=== PATIENT | female | born 1980 | race Caucasian/White ===

== ENCOUNTER 2024-06-04 15:37 | Emergency (ER) | payer OTHER ==
[2024-06-04] MEDS ORDERED: NA CHLORIDE 0.9% 500 ML ONE (17:14)
[2024-06-04 17:47] LABS: Absolute Basophils 0.1 K/uL (0-0.5); Absolute Eosinophils 0.3 K/uL (0-0.5); Absolute Lymphocytes (CBC) 2.6 K/uL (0.7-4.9); Absolute Monocytes 0.8 K/uL (0.1-1.3); Absolute Neutrophil 9.1 K/uL (1.8-8.0); Basophils % 1.2 % (0-1.3); Eosinophils % 2.1 % (0-4.4); Hematocrit 39.7 % (36.0-45.0); Hemoglobin 12.7 g/dL (12.0-15.0); Lymphocytes % 20.2 % (15.3-44.8); MCH 26.2 pg (27.0-35.0); MCHC 31.9 g/dL (32.0-36.0); MCV 82.2 fL (80-100); MPV 9.7 fL (7.6-11.3); Neutrophils % 70.5 % (41.7-73.7); Nucleated Red Blood Cells % 0.1 % (0-0); Platelets 323 thou/uL (152-406); RBC Red Blood Cell Count 4.83 M/uL (3.86-4.86); Red Cell Distribution Width 14.6 % (12.1-15.2)
--- NOTE | 2024-06-04 18:01 | EDPHYS ---
Physician Documentation [facility] Name: Norma Macias Age: 44 yrs Sex: Female : 1980 Arrival Date: 06/04/2024 Time: 15:37 Bed 17 Private MD: ED Physician Konstantin Lacy HPI: 06/04 17:54 This 44 yrs old Female presents to ER via Ambulatory with complaints of chelsea Abscess. 17:54 The patient presents with cellulitis of the left labia majora, the patient presents chelsea with a swollen area of the . Description: draining, erythematous, fluctuant, swollen. Onset: The symptoms/episode began/occurred 5 day(s) ago. Possible cause(s): unknown. Associated signs and symptoms: The patient has no apparent associated signs or symptoms. Modifying factors: the symptoms are alleviated by remaining still, sitz bath, the symptoms are aggravated by movement, walking, pressure, squeezing the lesion and expressing the contents, touching. Severity of symptoms: At their worst the symptoms were moderate, in the emergency department the symptoms are unchanged. The patient has not experienced similar symptoms in the past. Historical: - Allergies: 16:17 No Known Allergies; cm10 - PMHx: 16:17 Anxiety; cm10 - PSHx: 16:17 section; cm10 - Immunization history:: Adult Immunizations up to date. - Infectious Disease History:: Denies. - Social history:: Smoking status: Patient reports the use of cigarette tobacco products, smokes one-half pack cigarettes per day. - Family history:: not pertinent. ROS: 17:54 Constitutional: Negative for fever, chills, and weight loss, Eyes: Negative for injury, chelsea pain, redness, and discharge, ENT: Negative for injury, pain, and discharge, Neck: Negative for injury, pain, and swelling, Cardiovascular: Negative for chest pain, palpitations, and edema, Respiratory: Negative for shortness of breath, cough, wheezing, and pleuritic chest pain, Abdomen/GI: Negative for abdominal pain, nausea, vomiting, diarrhea, and constipation, Back: Negative for injury and pain, MS/Extremity: Negative for injury and deformity, Neuro: Negative for headache, weakness, numbness, tingling, and seizure, Psych: Negative for depression, anxiety, suicide ideation, homicidal ideation, and hallucinations, Allergy/Immunology: Negative for hives, rash, and allergies, Endocrine: Negative for neck swelling, polydipsia, polyuria, polyphagia, and marked weight changes, Hematologic/Lymphatic: Negative for swollen nodes, abnormal bleeding, and unusual bruising, 17:54 : Positive for of the left labia majora, Exam: 17:54 Constitutional: This is a well developed, well nourished patient who is awake, alert, chelsea and in no acute distress. Head/Face: Normocephalic, atraumatic. Eyes: Pupils equal round and reactive to light, extra-ocular motions intact. Lids and lashes normal. Conjunctiva and sclera are non-icteric and not injected. Cornea within normal limits. Periorbital areas with no swelling, redness, or edema. ENT: Nares patent. No nasal discharge, no septal abnormalities noted. Tympanic membranes are normal and external auditory canals are clear. Oropharynx with no redness, swelling, or masses, exudates, or evidence of obstruction, uvula midline. Mucous membranes moist. Neck: Trachea midline, no thyromegaly or masses palpated, and no cervical lymphadenopathy. Supple, full range of motion without nuchal rigidity, or vertebral point tenderness. No Meningismus. Chest/axilla: Normal chest wall appearance and motion. Nontender with no deformity. No lesions are appreciated. Cardiovascular: Regular rate and rhythm with a normal S1 and S2. No gallops, murmurs, or rubs. Normal PMI, no JVD. No pulse deficits. Respiratory: Lungs have equal breath sounds bilaterally, clear to auscultation and percussion. No rales, rhonchi or wheezes noted. No increased work of breathing, no retractions or nasal flaring. Abdomen/GI: Soft, non-tender, with normal bowel sounds. No distension or tympany. No guarding or rebound. No evidence of tenderness throughout. Back: No spinal tenderness. No costovertebral tenderness. Full range of motion. MS/ Extremity: Pulses equal, no cyanosis. Neurovascular intact. Full, normal range of motion., bilateral aka Neuro: Awake and alert, GCS 15, oriented to person, place, time, and situation. Cranial nerves II-XII grossly intact. Motor strength 5/5 in all extremities. Sensory grossly intact. Cerebellar exam normal. Normal gait. Psych: Awake, alert, with orientation to person, place and time. Behavior, mood, and affect are within normal limits. 17:54 : CVA tenderness, is absent, Pelvic Exam: External exam: LEFT LABIA, RED, TENDER , NO BARTHOLINS, Vital Signs: 16:16 BP 133 / 95; Pulse 71; Resp 15; Temp 98.5(O); Pulse Ox 100% on R/A; Weight 77.11 kg; cm10 Height 5 ft. 4 in. ; Pain 8/10; 18:00 BP 128 / 87; Pulse 72; Resp 18; Temp 97.5; Pulse Ox 99% on R/A; ph 16:16 Body Mass Index 29.18 (77.11 kg, 162.56 cm) cm10 16:16 Pain Scale: Adult cm10 MDM: 16:15 Medical Screening Exam initiated chelsea 17:57 Differential diagnosis: abscess, cellulitis. Data reviewed: vital signs, nurses notes, [facility] lab test result(s). Consideration of Admission/Observation Escalation of care including admission/observation considered. I considered the following discharge prescriptions or medication management in the emergency department Medications were administered in the Emergency Department. See MAR. Test considered but Not performed: Ultrasound NO USG. Historians other than the Patient: PT WELL INFORMED. Care significantly affected by the following chronic conditions: ANXIETY. Counseling: I had a detailed discussion with the patient and/or guardian regarding the historical points, exam findings, and any diagnostic results supporting the discharge/admit diagnosis, lab results, the need for outpatient follow up, for definitive care, a family practitioner, an OB/Gyne specialist. 06/04 16:51 Order name: CBC with Diff; Complete Time: 17:53 chelsea Administered Medications: 17:36 Not Given (Duplicate Order): prochlorperazinesuppository [address] once chelsea 18:29 Drug: Doxycycline PO 200 mg PO once Route: PO; ph 18:29 Follow up: Response: No adverse reaction; Medication administered at discharge. ph 18:29 Drug: Trimethoprim-Sulfamethoxazole PO (160 mg-800 mg (DS) 1 tablet PO once Route: PO; ph 18:30 Follow up: Response: No adverse reaction; Medication administered at discharge. ph 18:29 Drug: Ibuprofen PO 600 mg PO once Route: PO; ph 18:30 Follow up: Response: No adverse reaction; Medication administered at discharge. ph 18:30 Not Given (Other Intervention Used): ns 0.9% 500 ml IV at bolus once; to be given as a ph bolus over 30 minutes Disposition Summary: 06/04/24 18:00 Discharge Ordered Notes: Location: Home che[place]sea Problem: new chelsea Symptoms: have improved chelsea Condition: Stable chelsea Diagnosis - Cutaneous abscess of perineum - LEFT LABIA chelsea - Cellulitis of other sites chelsea Followup: chelsea - With: Private Physician - When: 2 - 3 days - Reason: Recheck today's complaints, Continuance of care, Re-evaluation by your physician Followup: chelsea - With: Romina Altamirano MD - When: 2 - 3 days - Reason: Recheck today's complaints, Re-evaluation by your physician Discharge Instructions: - Discharge Summary Sheet chelsea - Skin Abscess chelsea - Cellulitis, Adult chelsea - How to Take a Sitz Bath chelsea - Skin Abscess, [id number] chelsea - Cellulitis, Adult, [id number] [facility] Forms: - Medication Reconciliation Form [facility] - Antibiotic Education [facility] - Prescription Opioid Use [facility] - Patient Portal Instructions [facility] - Leadership Thank You Letter [facility] - Work release form ph Prescriptions: - diclofenac sodium 50 mg Oral tablet, delayed release (enteric coated) - take 1 tablet ORAL route 3 times per day; 21 tablet; Refills: 0, Product [facility] Selection Permitted - Centany 2 % Topical ointment - apply 1 application TOPICAL route 3 times per day; 15 gram; Refills: 0, Product [place]sea Selection Permitted - Doxycycline Hyclate 100 mg Oral tablet - take 1 tablet ORAL route every 12 hours; 20 tablet; Refills: 0, Product [facility] Selection Permitted - Fluconazole 200 mg Oral tablet - take 1 tablet ORAL route once TAKE ONE NEEDED, REPEAT IN 1 WEEK IF SYMPTOMS chelsea PERSIST; 2 tablet; Refills: 0, Product Selection Permitted - Bactrim DS 800-160 mg Oral Tablet - take 1 tablet ORAL route every 12 hours for 7 days; 14 tablet; Refills: 0, [facility] Product Selection Permitted Signatures: Dispatcher [employer] Konstantin Vega MD MD cha Hall, Patricia RN RN ph Kaykay Esposito Clarissa RN RN cm10 Corrections: (The following items were deleted from the chart) 17:36 17:36 COMPREHENSIVE METABOLIC PANEL+C.LAB.BRZ ordered. EDMS EDMS 18: 17:37 COMPREHENSIVE METABOLIC PANEL+C.LAB.BRZ ordered. EDMS EDMS 18:29 18:05 Labs - recollect needed ordered. eb ph
--- NOTE | 2024-06-04 18:01 | ER ---
Nurse's Notes [facility] Name: Norma Macias Age: 44 yrs Sex: Female : 1980 Arrival Date: 06/04/2024 Time: 15:37 Bed 17 Private MD: Diagnosis: Cutaneous abscess of perineum-LEFT LABIA;Cellulitis of other sites Presentation: 06/04 16:16 Chief complaint: Patient states: Abscess to left labia X3 days. Pt reports that today cm10 it started draining. Coronavirus screen: Client denies travel out of the [place] in the last 14 days. Ebola Screen: Patient denies travel to an Ebola-affected area in the 21 days before illness onset. No symptoms or risks identified at this time. Initial Sepsis Screen: Does the patient meet any 2 criteria? No. Patient's initial sepsis screen is negative. Does the patient have a suspected source of infection? No. Patient's initial sepsis screen is negative. Risk Assessment: Do you want to hurt yourself or someone else? Patient reports no desire to harm self or others. Onset of symptoms was June 01, 2024. 16:16 Method Of Arrival: Ambulatory cm10 16:16 Acuity: KEM 4 cm10 Triage Assessment: 16:17 General: Appears in no apparent distress. comfortable, Behavior is calm, cooperative, cm10 appropriate for age. Pain: Complains of pain in left labia majora Pain currently is 8 out of 10 on a pain scale. Neuro: No deficits noted. Level of Consciousness is awake, alert, obeys commands, Oriented to person, place, time, situation, Appropriate for age. Respiratory: No deficits noted. Airway is patent Respiratory effort is even, unlabored, Respiratory pattern is regular, symmetrical. Derm: Abscess located on left labia minora. Historical: - Allergies: 16:17 No Known Allergies; cm10 - PMHx: 16:17 Anxiety; cm10 - PSHx: 16:17 section; cm10 - Immunization history:: Adult Immunizations up to date. - Infectious Disease History:: Denies. - Social history:: Smoking status: Patient reports the use of cigarette tobacco products, smokes one-half pack cigarettes per day. - Family history:: not pertinent. Screenin:58 [facility] ED Fall Risk Assessment (Adult) History of falling in the last 3 months, ph including since admission No falls in past 3 months (0 pts) Confusion or Disorientation No (0 pts) Intoxicated or Sedated No (0 pts) Impaired Gait No (0 pts) Mobility Assist Device Used No (0 pt) Altered Elimination No (0 pt) Score/Fall Risk Level 0 - 2 = Low Risk Oriented to surroundings, Maintained a safe environment, Hourly rounding (assess needs \T\ fall precautionary measures) done. Abuse screen: Denies threats or abuse. Denies injuries from another. Nutritional screening: No deficits noted. Tuberculosis screening: No symptoms or risk factors identified. Assessment: 17:57 General: Appears in no apparent distress. comfortable, well groomed, Behavior is calm, ph cooperative, appropriate for age. Pain: Complains of pain in left labia minora. Neuro: Level of Consciousness is awake, alert, obeys commands, Oriented to person, place, time, situation. Cardiovascular: Capillary refill < 3 seconds in bilateral fingers Patient's skin is warm and dry. Respiratory: Airway is patent Respiratory effort is even, unlabored. Derm: Skin is pink, warm \T\ dry. Derm: Abscess located on left labia minora has purulent drainage. Vital Signs: 16:16 BP 133 / 95; Pulse 71; Resp 15; Temp 98.5(O); Pulse Ox 100% on R/A; Weight 77.11 kg; cm10 Height 5 ft. 4 in. ; Pain 8/10; 18:00 BP 128 / 87; Pulse 72; Resp 18; Temp 97.5; Pulse Ox 99% on R/A; ph 16:16 Body Mass Index 29.18 (77.11 kg, 162.56 cm) cm10 16:16 Pain Scale: Adult cm10 ED Course: 15:41 Patient arrived in ED. sj2 16:15 Konstantin Lacy MD is Attending Physician. chelsea 16:17 Triage completed. cm10 16:17 Arm band placed on right wrist. Patient placed in waiting room. cm10 16:46 Eveline Sanders, RN is Primary Nurse. ph 17:00 Initial lab(s) drawn, by ED staff, sent to lab. Inserted saline lock: 20 gauge in right ph antecubital area, using aseptic technique. Blood collected. Flushed with 10 mL NS. 17:58 Romina Altamirano MD is Referral Physician. [facility] 17:59 Patient has correct armband on for positive identification. Bed in low position. Call ph light in reach. Side rails up X 1. Pulse ox on. NIBP on. 17:59 No provider procedures requiring assistance completed. ph 18:30 IV discontinued, intact, bleeding controlled, No redness/swelling at site. Pressure ph dressing applied. Administered Medications: 17:36 Not Given (Duplicate Order): prochlorperazinesuppository 25 mg HI once chelsea 18:29 Drug: Doxycycline PO 200 mg PO once Route: PO; ph 18:29 Follow up: Response: No adverse reaction; Medication administered at discharge. ph 18:29 Drug: Trimethoprim-Sulfamethoxazole PO (160 mg-800 mg (DS) 1 tablet PO once Route: PO; ph 18:30 Follow up: Response: No adverse reaction; Medication administered at discharge. ph 18:29 Drug: Ibuprofen PO 600 mg PO once Route: PO; ph 18:30 Follow up: Response: No adverse reaction; Medication administered at discharge. ph 18:30 Not Given (Other Intervention Used): ns 0.9% 500 ml IV at bolus once; to be given as a ph bolus over 30 minutes Medication: 17:59 VIS not applicable for this client. ph Outcome: 18:00 Discharge ordered by . chelsea 18:30 Discharged to home ambulatory, with family, ph 18:30 Condition: good 18:30 Discharge instructions given to patient, Instructed on discharge instructions, follow up and referral plans. medication usage, Demonstrated understanding of instructions, follow-up care, medications, Prescriptions given X 5 18:30 Patient left the ED. ph Signatures: Konstantin Lacy MD MD cha Hall, Patricia, RN RN Penny Damian RN RN cm10 Dominik Lopez sj2
[2024-06-04] MEDS ORDERED: SMZ./TMP. 800/160 MG TABLET ONE (18:23)
[2024-06-04] MEDS ORDERED: IBUPROFEN 200 MG TAB PO ONE (18:23)
[2024-06-04] MEDS ORDERED: DOXYCYCLINE 100 MG CAP PO ONE (18:24)
[2024-06-04] MEDS ORDERED: IBUPROFEN 400 MG TAB ONE (18:24)
[2024-06-04 18:48] VITALS: BP 128/87; TEMP 97.5; O2SAT 99
== END 2024-06-04 18:30 | disposition home or self-care (01) ==
LOC: ER 15:37
DX: L03.818 Cellulitis of other sites (principal)
CPT/HCPCS: 85025; 36415; 99284; J7040